=== PATIENT | male | born 1960 | race Two or more races ===

== ENCOUNTER 2023-02-11 08:44 | Outpatient (CLI) | payer OTHER | END 2023-02-11 08:50 | disposition home or self-care (01) | LOC: RAD 08:44 | PROVIDERS: ATTEND Orthopaedic Surgery | DX: M25.522 Pain in left elbow (principal) ==

== ENCOUNTER 2025-08-14 08:16 | Outpatient (CLI) | payer OTHER ==
[~2025-08-14] VITALS: Ht 180.3 cm; Wt 93.0 kg
[2025-08-14 09:26] LABS: BASO % 0.9 % (0.1-1.2); EOS # 0.19 (0.04-0.54); EOS % 2.9 % (0.7-7.0); LYMPH # 1.25 (1.18-3.74); LYMPH % 18.8 % (19.3-53.1); MEAN PLATELET VOLUME 9.60 fl (9.4-12.4); MONO # 0.41 (0.24-0.82); MONO % 6.2 % (4.7-12.5); NEUT # 4.72 (1.56-6.13); NEUT % 70.7 % (34.0-71.1); RED CELL DISTRIBUTION WIDTH 13.2 % (11.6-14.4)
[2025-08-14 09:43] LABS: COL EPI 110 SECONDS (82-175)
[2025-08-14 09:46] VITALS: BP 129/84
[2025-08-14 09:48] LABS: INR 1.03; URINE APPEARANCE Clear; URINE BILIRRUBIN Negative (NEGATIVE); URINE BLOOD Negative; URINE COLOR Yellow; URINE GLUCOSE Negative (NEGATIVE); URINE KETONE Trace (NEGATIVE); URINE LEUKOCYTE Negative; URINE NITRATE Negative; URINE PROTEIN Negative (NEGATIVE); URINE UROBILINOGEN 0.2 E.U./dl
[2025-08-14 09:49] LABS: URINE BACTERIA 8.3 uL (0.0-1933); URINE EPITHELIAL CELLS 2.3 uL (0.0-38.8); URINE RBC 4.8 uL (0.0-20.8); URINE WBC 5.8 uL (0.0-23.2)
[2025-08-14 09:51] LABS: URINE CAST 0.29 uL (0.0-1.40)
[2025-08-14 10:10] LABS: ALT/SGPT 28.0 U/L (12-78); AST/SGOT 14.0 U/L (15-37); BILIRUBIN TOTAL 0.72 mg/dL (0.3-1.2); BUN CREA RATIO 15.0 (7.0-25.0); CREATININE SERUM 0.96 mg/dL (0.70-1.30); GFR 79.11; GLOBULINA 3.1 G/DL (2.4-3.5); GLUCOSE FASTING 99.0 mg/dL (65-100); OSMOLALITY SERUM 287.0 MOSM/KG (275-295)
== END 2025-08-14 13:53 | disposition home or self-care (01) ==
LOC: LAB 08:16
PROVIDERS: ATTEND Orthopaedic Surgery
DX: D64.9 Anemia, unspecified (principal); E88.89 Other specified metabolic disorders; D68.8 Other specified coagulation defects; N39.0 Urinary tract infection, site not specified; Z22.322 Carrier or suspected carrier of Methicillin resistant Staphylococcus aureus; E11.9 Type 2 diabetes mellitus without complications; I10 Essential (primary) hypertension

== ENCOUNTER 2025-08-14 09:50 | Outpatient (CLI) | payer OTHER | END 2025-08-14 13:32 | disposition home or self-care (01) | LOC: RAD 09:50 | PROVIDERS: ATTEND Orthopaedic Surgery | DX: Z76.89 Persons encountering health services in other specified circumstances (principal) ==

== ENCOUNTER 2025-08-24 11:45 | Inpatient (IN) | payer OTHER ==
[~2025-08-24] VITALS: Ht 180.3 cm; Wt 93.0 kg
[2025-08-24 13:18] VITALS: BP 129/84
[2025-08-28] MEDS ORDERED: CEFAZOLIN SODIUM 1,000 MG VIAL ONE ×2 (08:31→15:17)
[2025-08-28] MEDS ORDERED: TRANEXAMIC ACID 100MG/1ML (1000MG) AMPUL ONE (08:32)
[2025-08-28] MEDS ORDERED: EPINEPHRINE HCL/PF 1 MG/ML AMPUL ONE (09:06)
[2025-08-28] MEDS ORDERED: LIDOCAINE HCL 1%/EPINEPHRINE 20ML VIAL IJ ONE (09:07)
[2025-08-28] MEDS ORDERED: BUPIVACAINE HCL/MPF 0.5% 30ML VIAL ONE (09:07)
[2025-08-28] MEDS ORDERED: VANCOMYCIN HCL 1,000 MG VIAL ONE (09:07)
[2025-08-28] MEDS ORDERED: KETOROLAC TROMETHAMINE 60 MG VIAL IM ONE (09:07)
[2025-08-28] MEDS ORDERED: ISOPROPYL ALCOHOL 30 ML OUNCE TOP ONE (11:52)
[2025-08-28] MEDS ORDERED: KETOROLAC TROMETHAMINE 10 MG TABLET PO SCH (13:05)
[2025-08-28] MEDS ORDERED: PANTOPRAZOLE SODIUM 40 MG TABLET.DR PO SCH (13:05)
[2025-08-28] MEDS ORDERED: SODIUM CHLORIDE 0.45 % 1,000 ML IV SCH (13:15)
[2025-08-28] MEDS ORDERED: TRAMADOL HCL 50 MG TABLET PO PRN (13:15)
[2025-08-28] MEDS ORDERED: PROMETHAZINE HCL 50 MG/ML AMPUL IM PRN (13:15)
[2025-08-28] MEDS ORDERED: ONDANSETRON 4 MG TAB.RAPDIS PO PRN (13:15)
[2025-08-28] MEDS ORDERED: ONDANSETRON HCL 2 MG/ML VIAL IV PRN (13:15)
[2025-08-28] MEDS ORDERED: CELECOXIB 200 MG CAPSULE PO ONE (16:05)
[2025-08-28] MEDS ORDERED: ACETAMINOPHEN 325 MG TABLET PO ONE (16:06)
[2025-08-28] MEDS ORDERED: CELECOXIB 200 MG CAPSULE PO SCH (17:00)
[2025-08-28] MEDS ORDERED: CEFAZOLIN SODIUM 1,000 MG VIAL IV SCH (17:00)
[2025-08-28] MEDS ORDERED: ACETAMINOPHEN 325 MG TABLET PO SCH (17:00)
[2025-08-28 18:06] VITALS: BP 148/88; O2SAT 98
[2025-08-28 23:36] VITALS: BP 132/79; O2SAT 97
[2025-08-29] MEDS ORDERED: RIVAROXABAN 10 MG TAB PO SCH (09:00)
[2025-08-29 11:51] LABS: BASO % 0.3 % (0.1-1.2); EOS # 0.19 (0.04-0.54); EOS % 2.2 % (0.7-7.0); LYMPH # 0.95 (1.18-3.74); LYMPH % 10.8 % (19.3-53.1); MEAN PLATELET VOLUME 10.30 fl (9.4-12.4); MONO # 0.70 (0.24-0.82); MONO % 7.9 % (4.7-12.5); NEUT # 6.94 (1.56-6.13); NEUT % 78.6 % (34.0-71.1); RED CELL DISTRIBUTION WIDTH 13.3 % (11.6-14.4)
[2025-08-29] MEDS ORDERED: CANDESARTAN CILEXETIL 8 MG TAB PO NR (13:00)
[2025-08-29] MEDS ORDERED: ENALAPRILAT DIHYDRATE 1.25 MG/ML VIAL IV PRN (13:00)
[2025-08-29 13:34] LABS: COVID-19 AG NEGATIVE (NEGATIVE)
[2025-08-29 13:57] LABS: ALT/SGPT 23.0 U/L (12-78); AST/SGOT 15.0 U/L (15-37); BILIRUBIN TOTAL 0.69 mg/dL (0.3-1.2); BUN CREA RATIO 8.0 (7.0-25.0); CREATININE SERUM 1.03 mg/dL (0.70-1.30); GFR 72.94; GLOBULINA 2.9 G/DL (2.4-3.5); GLUCOSE FASTING 103.0 mg/dL (65-100); OSMOLALITY SERUM 284.0 MOSM/KG (275-295)
[2025-08-29 16:00] VITALS: BP 157/84; O2SAT 96
[2025-08-29] MEDS ORDERED: ROSUVASTATIN CALCIUM 10 MG TABLET PO SCH (17:00)
[2025-08-30 00:30] VITALS: BP 128/82; O2SAT 98
[2025-08-30 06:26] LABS: BASO % 0.5 % (0.1-1.2); EOS # 0.32 (0.04-0.54); EOS % 3.4 % (0.7-7.0); LYMPH # 1.49 (1.18-3.74); LYMPH % 15.8 % (19.3-53.1); MEAN PLATELET VOLUME 10.30 fl (9.4-12.4); MONO # 0.88 (0.24-0.82); MONO % 9.3 % (4.7-12.5); NEUT # 6.68 (1.56-6.13); NEUT % 70.7 % (34.0-71.1); RED CELL DISTRIBUTION WIDTH 13.2 % (11.6-14.4)
[2025-08-30 08:35] VITALS: BP 137/81; O2SAT 97
[2025-08-30] MEDS ORDERED: CANDESARTAN CILEXETIL 8 MG TAB PO SCH (09:00)
[2025-08-30] MEDS ORDERED: SENNA/DOCUSATE SODIUM 1 TAB TABLET PO SCH (09:00)
[2025-08-30 16:00] VITALS: BP 120/75; O2SAT 97
[2025-08-31 00:18] VITALS: BP 105/67; O2SAT 96
[2025-08-31 08:01] VITALS: BP 118/71; O2SAT 97
[2025-08-31 15:00] VITALS: BP 127/84; O2SAT 98
== END 2025-08-31 22:04 | disposition home or self-care (01) | DRG 470 ==
LOC: O/R 08-28 07:00 → SURH 08-28 07:00
PROVIDERS: Internal Medicine; ADMIT Orthopaedic Surgery; ATTEND Orthopaedic Surgery
PROC: 0SRC0J9 Replacement of Right Knee Joint with Synthetic Substitute, Cemented, Open Approach (ICD-10-PCS; principal; 2025-08-28 07:00)
DX: M17.11 Unilateral primary osteoarthritis, right knee (principal); I10 Essential (primary) hypertension